=== PATIENT | female | born 1945 | race Caucasian/White ===

== ENCOUNTER 2020-10-01 13:40 | Inpatient (IN) | payer OTHER ==
[~2020-10-01] VITALS: Ht 157.5 cm; Wt 49.0 kg
[2020-10-01] MEDS ORDERED: methylPREDNISolone SOD SUCC 125 MG/2 ML VL IV ONE (13:45)
[2020-10-01 14:32] LABS: Basophils # (auto) 0 10 ^3/uL (0-0.2); Basophils % (auto) 0.4 % (0.0-2.0); Eosinophils # (auto) 0 10 ^3/uL (0-0.8); Eosinophils % (auto) 0.2 % (0.0-7.0); Hemoglobin 14.9 g/dL (12.2-16.2); Monocytes # (auto) 0.9 10 ^3/uL (0-1.3)
[2020-10-01 14:34] LABS: Lymphocytes % (auto) 12.9 % (10.0-50.0); Mean Corpuscular Hgb Conc. 35.5 g/dL (32.0-36.0); Mean Corpuscular Volume 101.5 fL (80.0-100.0); Monocytes % (auto) 11.6 % (0.0-12.0); Neutrophils # (auto) 6.1 10 ^3/uL (1.6-8.6); Neutrophils % (auto) 74.9 % (37.0-80.0); Platelet Count (auto) 337 10^3/uL (140-450); Red Blood Cells 4.13 10^6/uL (4.0-5.20); Red Cell Distribution Width 12.8 % (11.8-14.3); White Blood Cell 8.1 10^3/uL (4.4-10.8)
[2020-10-01 14:51] LABS: Albumin 3.6 g/dL (3.4-5.0); Anion Gap 11 (5-15); Blood Urea Nitrogen 26 mg/dL (7-18); Calcium 9.9 mg/dL (8.5-10.1); Carbon Dioxide 25 mmol/L (21-32); Chloride 89 mmol/L (98-107); Glucose 112 mg/dL (74-106); Potassium 3.8 mmol/L (3.5-5.1); Sodium 125 mmol/L (136-145)
[2020-10-01 14:59] LABS: Alanine Aminotransferase 39 U/L (13-56); Alkaline Phosphatase 144 U/L (45-117); Aspartate Aminotransferase 116 U/L (15-37); BUN/Creatinine Ratio 29.9; Bilirubin, Total 0.6 mg/dL (0.2-1.0); CRP High Sensitivity 1.27 mg/dL (< 0.3); GFR African American 81 mL/min; GFR Non-African American 67 mL/min; Total Protein 8.2 g/dL (6.4-8.2)
[2020-10-01] MEDS ORDERED: MORPHINE SULF INJ 2 MG/ML SYRINGE 1ML IV PRN ×2 (15:00→15:15)
[2020-10-01] MEDS ORDERED: NITROGLYCERIN 0.4 MG SL TAB SL PRN (15:00)
[2020-10-01] MEDS ORDERED: ALBUTEROL SULF 2.5 MG/0.5ML(0.5%) NEB SOLN NEB PRN (15:15)
[2020-10-01] MEDS ORDERED: traMADol HCL 50 MG TAB PO PRN (15:15)
[2020-10-01] MEDS ORDERED: ZOLPIDEM TARTRATE 5 MG TAB PO PRN (15:15)
[2020-10-01] MEDS ORDERED: ALBUTEROL SULF HFA 90MCG INH 200DOSE IN PRN (15:15)
[2020-10-01] MEDS ORDERED: LACTULOSE 20Gm/30ML SOLN PO PRN (15:15)
[2020-10-01] MEDS ORDERED: ONDANSETRON HCL 4 MG/2 ML VIAL IV PRN (15:15)
[2020-10-01] MEDS ORDERED: levoFLOXacin 500MG 100 ML IV ONE (15:30)
[2020-10-01] MEDS: SODIUM CHLORIDE 0.9% 1,000 ML IV SCH (16:11)
[2020-10-01] MEDS: ALBUTEROL SULF 2.5 MG/0.5ML(0.5%) NEB SOLN NEB SCH (18:00)
[2020-10-01] MEDS: methylPREDNISolone SOD SUCC 40 MG/ML VL IV SCH (18:00)
[2020-10-01] MEDS: IPRATROPIUM BROM 0.5 MG/2.5ML INH SOL NEB SCH (18:00)
[2020-10-01] MEDS ORDERED: BUDESONIDE (INHALATION) 0.5 MG/2 ML NEB ONE (19:50)
[2020-10-01] MEDS ORDERED: ENOXAPARIN SOD 40 MG/0.4 ML SYRINGE SC SCH (22:00)
[2020-10-01] MEDS: BUDESONIDE (INHALATION) 180 MCG IH IN SCH (22:00)
[2020-10-02] MEDS: methylPREDNISolone SOD SUCC 40 MG/ML VL IV SCH ×4 (00:06→21:14)
[2020-10-02] MEDS: ACETAMINOPHEN 500 MG TAB PO PRN ×2 (00:56→12:23)
[2020-10-02 03:30] VITALS: BP_SYST 144; BP_SYST 166; BP_DIAS 87; BP_DIAS 93
[2020-10-02 04:16] VITALS: BP 144/87
[2020-10-02] MEDS ORDERED: ATOR10TA PO (04:24)
[2020-10-02] MEDS ORDERED: ALBUAER3 IN (04:24)
[2020-10-02] MEDS ORDERED: ASPI-543 PO (04:24)
[2020-10-02] MEDS: SODIUM CHLORIDE 0.9% 1,000 ML IV SCH (04:31)
[2020-10-02] MEDS: ALBUTEROL SULF 2.5 MG/0.5ML(0.5%) NEB SOLN NEB SCH ×5 (07:00→21:09)
[2020-10-02] MEDS: IPRATROPIUM BROM 0.5 MG/2.5ML INH SOL NEB SCH ×5 (07:00→21:09)
[2020-10-02 08:00] VITALS: BP 137/81
[2020-10-02] MEDS: BUDESONIDE (INHALATION) 180 MCG IH IN SCH (10:00)
[2020-10-02] MEDS: levoFLOXacin 250MG 50 ML IV SCH (10:00)
[2020-10-02] MEDS ORDERED: ASCORBIC ACID 1,000 MG TAB PO SCH (10:00)
[2020-10-02] MEDS ORDERED: DexAMETHasone SOD PHOS 10MG/1ML VIAL INJ IV SCH (10:00)
[2020-10-02] MEDS ORDERED: ZINC SULFATE 220mg CAP or TAB PO SCH (10:00)
[2020-10-02] MEDS: CHOLECALCIFEROL (VITD3) 2,000 UNIT CAP/TAB PO SCH (10:58)
[2020-10-02] MEDS ORDERED: RABE20TA19 PO (11:30)
[2020-10-02] MEDS ORDERED: TRAM50TA2 PO (11:30)
[2020-10-02] MEDS ORDERED: IPRIH INH (11:30)
[2020-10-02] MEDS ORDERED: IPRA0.00 IN (11:30)
[2020-10-02] MEDS ORDERED: MIDAZOLAM HCL 1MG/1ML-2 ML VIAL IV ONE (12:45)
[2020-10-02 16:00] VITALS: BP 142/78
[2020-10-02] MEDS: MORPHINE SULF INJ 2 MG/ML SYRINGE 1ML IV PRN (20:37)
[2020-10-02 22:31] VITALS: BP 149/91
[2020-10-03] MEDS: MORPHINE SULF INJ 2 MG/ML SYRINGE 1ML IV PRN (01:16)
[2020-10-03 05:30] VITALS: BP 149/81
[2020-10-03] MEDS: methylPREDNISolone SOD SUCC 40 MG/ML VL IV SCH ×3 (05:43→21:02)
[2020-10-03] MEDS: ACETAMINOPHEN 500 MG TAB PO PRN ×2 (05:43→17:20)
[2020-10-03] MEDS: ALBUTEROL SULF 2.5 MG/0.5ML(0.5%) NEB SOLN NEB SCH (07:00)
[2020-10-03] MEDS: IPRATROPIUM BROM 0.5 MG/2.5ML INH SOL NEB SCH ×3 (07:00→18:00)
[2020-10-03 07:31] LABS: Basophils # (auto) 0 10 ^3/uL (0-0.2); Eosinophils # (auto) 0 10 ^3/uL (0-0.8); Lymphocytes # (auto) 0.5 10 ^3/uL (0.4-5.4)
[2020-10-03 07:38] LABS: Basophils % (auto) 0.1 % (0.0-2.0); Hematocrit 40.2 % (36.0-46.0); Hemoglobin 13.9 g/dL (12.2-16.2); Lymphocytes % (auto) 3.5 % (10.0-50.0); Mean Corpuscular Hemoglobin 35.3 pg (28.0-32.0); Mean Corpuscular Hgb Conc. 34.6 g/dL (32.0-36.0); Mean Corpuscular Volume 102.2 fL (80.0-100.0); Monocytes # (auto) 0.6 10 ^3/uL (0-1.3); Monocytes % (auto) 4.3 % (0.0-12.0); Neutrophils # (auto) 12.8 10 ^3/uL (1.6-8.6); Neutrophils % (auto) 92.1 % (37.0-80.0); Platelet Count (auto) 349 10^3/uL (140-450); Red Blood Cells 3.93 10^6/uL (4.0-5.20); Red Cell Distribution Width 12.9 % (11.8-14.3); White Blood Cell 13.9 10^3/uL (4.4-10.8)
[2020-10-03 07:45] LABS: Potassium 4.1 mmol/L (3.5-5.1)
[2020-10-03 07:47] LABS: INR 0.99 (0.9-1.15); Partial Thromboplastin Time 24.9 sec (23.0-31.2)
[2020-10-03 07:55] LABS: BUN/Creatinine Ratio 27.1; Calcium 8.9 mg/dL (8.5-10.1)
[2020-10-03 08:00] VITALS: BP 155/66
[2020-10-03] MEDS: CHOLECALCIFEROL (VITD3) 2,000 UNIT CAP/TAB PO SCH (09:35)
[2020-10-03] MEDS: levoFLOXacin 250MG 50 ML IV SCH (09:36)
[2020-10-03] MEDS: ASCORBIC ACID 1,000 MG TAB PO SCH (09:36)
[2020-10-03] MEDS: ENOXAPARIN SOD 40 MG/0.4 ML SYRINGE SC SCH (10:18)
[2020-10-03] MEDS ORDERED: FUROSEMIDE 20 MG/2 ML VIAL IV ONE (12:00)
[2020-10-03 12:44] LABS: Urine Bacteria FEW /hpf (None Seen); Urine Blood Negative /uL (Negative); Urine Mucus FEW (None Seen); Urine Specific Gravity 1.022 (1.001-1.035); Urine WBC <1 /hpf (0 - 5)
[2020-10-03 14:00] LABS: Calcium 8.7 mg/dL (8.5-10.1); Magnesium 2.7 mg/dL (1.6-2.6); Potassium 4.1 mmol/L (3.5-5.1)
[2020-10-03] MEDS: LEVALBUTEROL HCL 1.25 MG/3 ML NEB NEB SCH ×2 (14:00→18:00)
[2020-10-03 14:19] LABS: Protein, Urine 58.8 mg/dL (0.0-11.9)
[2020-10-03 16:00] VITALS: BP 154/77
[2020-10-03 22:00] VITALS: BP 138/60
[2020-10-04] MEDS: IPRATROPIUM BROM 0.5 MG/2.5ML INH SOL NEB SCH ×5 (00:03→23:30)
[2020-10-04] MEDS: LEVALBUTEROL HCL 1.25 MG/3 ML NEB NEB SCH ×5 (00:03→23:29)
[2020-10-04] MEDS: MORPHINE SULF INJ 2 MG/ML SYRINGE 1ML IV PRN (01:42)
[2020-10-04 05:00] VITALS: BP 126/61
[2020-10-04] MEDS: methylPREDNISolone SOD SUCC 40 MG/ML VL IV SCH ×3 (06:30→22:00)
[2020-10-04 07:51] LABS: BUN/Creatinine Ratio 31.4; Calcium 9.3 mg/dL (8.5-10.1); Potassium 3.5 mmol/L (3.5-5.1)
[2020-10-04 08:00] VITALS: BP 159/82
[2020-10-04] MEDS: FUROSEMIDE 20 MG/2 ML VIAL IV SCH (10:53)
[2020-10-04] MEDS: CHOLECALCIFEROL (VITD3) 2,000 UNIT CAP/TAB PO SCH (10:55)
[2020-10-04] MEDS: ASCORBIC ACID 1,000 MG TAB PO SCH (10:55)
[2020-10-04] MEDS: ENOXAPARIN SOD 40 MG/0.4 ML SYRINGE SC SCH (10:56)
[2020-10-04] MEDS: levoFLOXacin 250MG 50 ML IV SCH (10:56)
[2020-10-04] MEDS: ACETAMINOPHEN 500 MG TAB PO PRN (10:57)
[2020-10-04 15:48] VITALS: BP 144/94
[2020-10-04 22:00] VITALS: BP 146/92
[2020-10-05] VITALS (11 sets, daily range): BP systolic 136–175; BP diastolic 68–113
[2020-10-05] MEDS: methylPREDNISolone SOD SUCC 40 MG/ML VL IV SCH ×2 (01:01→06:30)
[2020-10-05] MEDS: IPRATROPIUM BROM 0.5 MG/2.5ML INH SOL NEB SCH ×4 (06:43→23:46)
[2020-10-05] MEDS: LEVALBUTEROL HCL 1.25 MG/3 ML NEB NEB SCH ×4 (06:43→23:46)
[2020-10-05 07:37] LABS: Potassium 3.6 mmol/L (3.5-5.1)
[2020-10-05 07:42] LABS: Calcium 9.2 mg/dL (8.5-10.1)
[2020-10-05] MEDS: fentaNYL CITRATE 100 MCG/2 ML VL IV ONE ×2 (08:15→12:15)
[2020-10-05] MEDS ORDERED: MIDAZOLAM HCL 1MG/1ML-2 ML VIAL IV ONE (08:15)
[2020-10-05] MEDS ORDERED: LIDOCAINE 2%HCL (LOCAL ANESTH.) INJ 20ML MDV ONE (09:33)
[2020-10-05] MEDS: FUROSEMIDE 20 MG/2 ML VIAL IV SCH (09:37)
[2020-10-05] MEDS: levoFLOXacin 250MG 50 ML IV SCH (09:37)
[2020-10-05] MEDS: CHOLECALCIFEROL (VITD3) 2,000 UNIT CAP/TAB PO SCH (09:45)
[2020-10-05] MEDS: ASCORBIC ACID 1,000 MG TAB PO SCH (09:45)
[2020-10-05] MEDS: ENOXAPARIN SOD 40 MG/0.4 ML SYRINGE SC SCH (09:46)
[2020-10-05] MEDS ORDERED: GELATIN 1 SPONGE SIZE 50 TOP ONE (11:45)
[2020-10-05] MEDS: Ensure HIGH Protein Chocolate 8oz Bottle PO SCH (18:00)
[2020-10-06 05:00] VITALS: BP 146/67
[2020-10-06 08:00] VITALS: BP 143/74
[2020-10-06] MEDS: Ensure HIGH Protein Chocolate 8oz Bottle PO SCH ×3 (08:00→18:00)
[2020-10-06] MEDS: levoFLOXacin 250MG 50 ML IV SCH (10:36)
[2020-10-06] MEDS: ENOXAPARIN SOD 40 MG/0.4 ML SYRINGE SC SCH (10:36)
[2020-10-06] MEDS: CHOLECALCIFEROL (VITD3) 2,000 UNIT CAP/TAB PO SCH (10:37)
[2020-10-06] MEDS: ASCORBIC ACID 1,000 MG TAB PO SCH (10:38)
[2020-10-06] MEDS: predniSONE 20 MG TAB PO SCH (10:39)
[2020-10-06] MEDS: FUROSEMIDE 20 MG/2 ML VIAL IV SCH (10:40)
[2020-10-06] MEDS: MORPHINE SULF INJ 2 MG/ML SYRINGE 1ML IV PRN ×3 (11:01→23:15)
[2020-10-06 16:22] VITALS: BP 156/88
[2020-10-06] MEDS: IPRATROPIUM BROM 0.5 MG/2.5ML INH SOL NEB SCH (18:54)
[2020-10-06] MEDS: LEVALBUTEROL HCL 1.25 MG/3 ML NEB NEB SCH (18:54)
[2020-10-06 20:00] VITALS: BP 148/73
[2020-10-06 22:00] VITALS: BP 152/85
[2020-10-06 22:02] VITALS: BP 148/73
[2020-10-07] MEDS: IPRATROPIUM BROM 0.5 MG/2.5ML INH SOL NEB SCH ×5 (00:26→23:49)
[2020-10-07] MEDS: LEVALBUTEROL HCL 1.25 MG/3 ML NEB NEB SCH ×5 (00:26→23:49)
[2020-10-07 05:45] VITALS: BP 154/77
[2020-10-07] MEDS: ACETAMINOPHEN 500 MG TAB PO PRN (07:58)
[2020-10-07 08:00] VITALS: BP 137/94
[2020-10-07] MEDS: Ensure HIGH Protein Chocolate 8oz Bottle PO SCH ×2 (08:00→12:04)
[2020-10-07] MEDS: ASCORBIC ACID 1,000 MG TAB PO SCH (10:23)
[2020-10-07] MEDS: CHOLECALCIFEROL (VITD3) 2,000 UNIT CAP/TAB PO SCH (10:23)
[2020-10-07] MEDS: levoFLOXacin 250MG 50 ML IV SCH (10:23)
[2020-10-07] MEDS: predniSONE 20 MG TAB PO SCH (10:24)
[2020-10-07] MEDS: ENOXAPARIN SOD 40 MG/0.4 ML SYRINGE SC SCH (10:24)
[2020-10-07] MEDS ORDERED: cefTRIAXone 1GM/50ML D5W 50 ML IV ONE (11:15)
[2020-10-07 16:00] VITALS: BP 113/75
[2020-10-07 20:00] VITALS: BP 124/88
[2020-10-07 22:00] VITALS: BP 124/88
[2020-10-08 05:00] VITALS: BP 142/90
[2020-10-08] MEDS: LEVALBUTEROL HCL 1.25 MG/3 ML NEB NEB SCH ×2 (06:13→12:15)
[2020-10-08] MEDS: IPRATROPIUM BROM 0.5 MG/2.5ML INH SOL NEB SCH ×2 (06:13→12:15)
[2020-10-08 08:00] VITALS: BP 154/80
[2020-10-08] MEDS: Ensure HIGH Protein Chocolate 8oz Bottle PO SCH ×3 (08:00→13:09)
[2020-10-08] MEDS: CHOLECALCIFEROL (VITD3) 2,000 UNIT CAP/TAB PO SCH (08:46)
[2020-10-08] MEDS: predniSONE 20 MG TAB PO SCH (08:46)
[2020-10-08] MEDS: ENOXAPARIN SOD 40 MG/0.4 ML SYRINGE SC SCH (08:46)
[2020-10-08] MEDS: ASCORBIC ACID 1,000 MG TAB PO SCH (08:46)
[2020-10-08] MEDS: ACETAMINOPHEN 500 MG TAB PO PRN (08:47)
[2020-10-08] MEDS ORDERED: cefTRIAXone 1GM/50ML D5W 50 ML IV SCH (09:00)
[2020-10-08 12:30] VITALS: BP 143/74
[2020-10-08 16:19] VITALS: BP 127/68
== END 2020-10-08 16:48 | disposition hospice, home (50) | DRG 180 ==
LOC: ER 13:40 → EDBD 13:40 → TELE 13:41 → TELE-CENTR 10-02 02:50
PROVIDERS: ADMIT Internal Medicine; ATTEND Internal Medicine
PROC: 0FB03ZX Excision of Liver, Percutaneous Approach, Diagnostic (ICD-10-PCS; principal; 2020-10-05)
DX: C34.90 Malignant neoplasm of unspecified part of unspecified bronchus or lung (principal); J96.00 Acute respiratory failure, unspecified whether with hypoxia or hypercapnia; J44.1 Chronic obstructive pulmonary disease with (acute) exacerbation; C78.7 Secondary malignant neoplasm of liver and intrahepatic bile duct; E87.1 Hypo-osmolality and hyponatremia; Z20.822 Contact with and (suspected) exposure to COVID-19; R91.8 Other nonspecific abnormal finding of lung field; E78.5 Hyperlipidemia, unspecified; I11.0 Hypertensive heart disease with heart failure; I50.9 Heart failure, unspecified; R59.0 Localized enlarged lymph nodes; F17.210 Nicotine dependence, cigarettes, uncomplicated; Z83.3 Family history of diabetes mellitus
CPT/HCPCS: 10022; 36415; 36600; 71045; 71250; 74150; 77012; 80048; 80053; 81001; 82570; 82728; 82805; 83735; 83880; 83930; 83935; 84156; 84300; 84484; 84550; 85025; 85379; 85610; 85730; 86141; 87070; 87077; 87186; 87205; 87426; 93005; 94640; 96365; 96372; 96375; G0378; J0696; J1956; J2250; J2405